=== PATIENT | female | born 1975 | race Two or more races ===

== ENCOUNTER 2017-07-02 08:59 | Outpatient (CLI) | payer OTHER | END 2017-07-02 09:06 | disposition home or self-care (01) | LOC: RAD 501 08:59 | DX: M41.86 Other forms of scoliosis, lumbar region (principal) ==

== ENCOUNTER 2021-12-07 09:44 | Emergency (ER) | payer OTHER ==
[~2021-12-07] VITALS: Ht 152.4 cm; Wt 59.4 kg
[2021-12-07] MEDS ORDERED: PRILOSEC OTC20 MG PO (15:36)
[2021-12-07] MEDS ORDERED: PEPCID AC20 MG PO (15:36)
== END 2021-12-07 15:42 | disposition home or self-care (01) ==
LOC: ER 09:44
DX: R10.9 Unspecified abdominal pain (principal); K76.0 Fatty (change of) liver, not elsewhere classified

== ENCOUNTER 2023-12-19 12:25 | Outpatient (CLI) | payer OTHER ==
[~2023-12-19 12:25] MED LIST: PEPCID AC20 MG PO; PRILOSEC OTC20 MG PO
== END 2023-12-19 12:28 | disposition home or self-care (01) ==
LOC: NUCLEAR 12:25
PROVIDERS: ATTEND Internal Medicine Cardiovascular Disease
DX: M81.0 Age-related osteoporosis without current pathological fracture (principal)